=== PATIENT | female | born 1990 | race Caucasian/White ===

== ENCOUNTER 2024-07-11 19:17 | Emergency (ER) | payer OTHER, SELFPAY ==
[2024-07-11 19:20] VITALS: BP 121/82
[2024-07-11 19:45] LABS: % Basophils 0.6 % (0-2); % Eosinophils 2.7 % (0-6); % Immature Granulocytes 0.2 % (0-0.5); % Lymphocytes 30.8 % (20.5-51.1); % Monocytes 12.4 % (1.7-9.3); % Neutrophils 53.3 % (42.2-75.2); Absolute Eosinophils 0.1 10^3/uL (0-0.7); Absolute Lymphocytes 1.6 10^3/uL (1.2-3.4); Absolute Monocytes 0.6 10^3/uL (0.1-0.6); Absolute Neutrophils 2.8 10^3/uL (1.4-6.5); Hematocrit 34.1 % (37.0-47.0); Hemoglobin 12.3 g/dL (12.0-16.0); Mean Corp Hgb Conc. 36.1 g/dL (33.0-37.0); Mean Corpuscular Hgb 30.4 pg (27.0-31.0); Mean Corpuscular Volume 84.4 fL (81.0-99.0); Mean Platelet Volume 11.2 fL (7.4-10.4); Nucleated Red Blood Cells % 0 %; Platelet Count 204 10^3/uL (130-400); Red Blood Cell Count 4.04 10^6/uL (4.20-5.40); Red Cell Dist. Width 11.6 % (11.5-14.5); White Blood Cell Count 5.2 10^3/uL (4.8-10.8)
[2024-07-11 20:04] LABS: ALT (SGPT) 12 U/L (0-35); AST (SGOT) 26 U/L (14-36); Albumin 4.6 g/dl (3.5-5.0); Alkaline Phosphatase 54 U/L (38-126); Blood Urea Nitrogen 6 mg/dl (7-17); Calcium 9.7 mg/dl (8.4-10.2); Carbon Dioxide 21 mmol/L (22-30); Chloride 102 mmol/L (98-107); Glucose 101 mg/dl (70-99); Sodium 141 mmol/L (135-145); Total Bilirubin 0.8 mg/dl (0.2-1.3); Total Protein 7.5 g/dl (6.3-8.2); eGFR > 60.00
[2024-07-11 21:51] VITALS: BP 127/89
[2024-07-11 23:00] VITALS: BP 112/75
[2024-07-11 23:08] LABS: COVID-19 Antigen Negative (Negative)
[2024-07-11 23:26] VITALS: BMI 21.5
[2024-07-11] MEDS: NSS 1000 IV (23:43)
--- NOTE | 2024-07-12 00:14 | ED.GENMED ---
History of Present Illness
General
Chief Complaint: Headache
Source: patient
Time Seen by Provider: 07/11/24 21:29
History of Present Illness
History of Present Illness:
33-year-old female who presents with headache that has been ongoing for some time. The patient states she has a history of migraines but doing better with ibuprofen but over the last weeks or longer has had headaches. Her son was recently sick and
over the last 3 to 4 days she has had some diarrhea, nausea, body aches, congestion and over the last few days her headache has persisted. She presents as she was thinking maybe she had West Nile virus or some other brain process. The patient
states initially that she was hoping to get a CAT scan to rule out a brain tumor. Patient denies any motor weakness or numbness or tingling. No vision changes. No neck pain. No neck stiffness. No fevers
Past History
Past History
ED Past Medical History: Other (Migraines)
Phy Exam
Physical Exam
Physical Exam:
CONSTITUTIONAL Patient alert and oriented to person, place and time. Well-appearing. Vital signs reviewed.
HEAD atraumatic, normocephalic.
EYES eyelids normal to inspection, Pupils equally round and reactive to light, Extraocular muscles intact, Conjunctiva normal, Sclera normal.
NECK normal range of motion, Trachea midline, no jugular venous distention.
RESPIRATORY CHEST No respiratory distress noted, Chest expansion equal, Bilateral breath sounds clear.
CARDIOVASCULAR regular rate and rhythm, Heart sounds normal.
ABDOMEN abdomen nontender, Bowel sounds normal. No distention.
BACK normal inspection, no obvious deformities
UPPER EXTREMITY range of motion normal, Motor strength normal, no cyanosis, no edema.
LOWER EXTREMITY range of motion normal, Motor strength normal, no cyanosis, no edema.
NEURO Speech normal, No focal motor deficits, Rose coma scale 15, Memory normal, Cranial Nerves intact to screening exam. No pronator drift. Normal [id number]. Normal [id number]
SKIN skin warm, dry, and normal in color.
PSYCHIATRIC patient oriented to person place and time, Normal affect.
Course
Orders/Labs/Results
Orders:
Orders
07/11/24 19:35
Complete Blood Count/With Diff Urgent
Comprehensive Metabolic Panel Urgent
[facility] Progressive Urgent
07/11/24 22:49
COVID-19 Antigen Urgent
Source: Nasal Swab
07/11/24 23:31
0.9% Sodium Chloride 1000 ml [Nss] 1,000 ml IV BOLUS
Abnormal Lab Results
07/11/24
19:35
RBC 4.04 L 10^6/uL
(4.20-5.40)
Hct 34.1 L %
(37.0-47.0)
MPV 11.2 H fL
(7.4-10.4)
Monocytes % 12.4 H %
(1.7-9.3)
Carbon Dioxide 21 L mmol/L
(22-30)
BUN 6 L mg/dl
(7-17)
Glucose 101 H mg/dl
(70-99)
07/11/24 19:35
07/11/24 19:35
Vital Signs
Initial and Last Documented VS:
Initial Vital Signs
Temp Pulse Resp BP Pulse Ox
98.3 F 113 20 121/82 97
07/11/24 19:20 07/11/24 19:20 07/11/24 19:20 07/11/24 19:20 07/11/24 19:20
Last Documented Vital Signs
Temp Pulse Resp BP Pulse Ox
98.3 F 71 18 109/78 98
07/11/24 19:20 07/12/24 00:28 07/12/24 00:28 07/12/24 00:28 07/12/24 00:28
MDM/Problems Addressed
MDM/Problems Addressed:
Headache, viral syndrome
*Pulse Oximetry
Patient hypoxic: no
*Critical Care Note
Total Time (30-74mins, 75-104mins- exclusive of procedures): Not Applicable
Data Reviewed
Source: patient
Further Testing Considered But Not Given:
Consider CT but no focal motor findings and headaches have been ongoing for some time
Patient Management
Escalation/DeEscalation of care consider admission/obs:
Long discussion about imaging. The patient admits that she has had headaches for some time and was frustrated by her neurologist and PCP. I see no evidence for need for head CT at this time. Her neurologic assessment is normal. I did recommend
at some point having outpatient MRI. She does agree. I suspect she had a viral illness recently given her symptoms and her son being sick. I suspect this is triggered her symptoms. I recommended increase fluids and outpatient follow-up
ED Attending Note
-
Portions of this chart may have been created with voice recognition software.� Occasional wrong word or��sound alike� substitutions may have occurred due to the inherent limitations of voice recognition software.
Discharge Plan
Departure
Patient Disposition: Home (Routine Discharge)
Date of Disposition: 07/12/24
Time of Disposition: 00:14
Patient with high blood pressure during this ER visit?: No
Discharge Problem:
Headache, Acute viral syndrome
Instructions: Headache, Adult (DC)
Referrals:
Preethi Fink CRNP [Family Provider] -
Activity Restrictions/Additional Instructions:
In light of your recurrent headaches, it is recommended that at some point you have an MRI of your brain. Please see your doctor to arrange outpatient MRI. Return immediately for worsening symptoms, intractable vomiting, weakness McConn, vision
changes or any other concerns. Please drink plenty of fluids.
Interventions
Interventions:
*Risk Screen - Suicide Last Done: 07/11/24 19:20
*General Assessment Last Done: 07/11/24 19:20
*Neglect/Abuse Screening Last Done: 07/11/24 19:20
ED- Fall Risk Assessment Last Done: 07/11/24 21:51
*ED COVID-19 Vaccine History Last Done: 07/11/24 23:26
*Nursing Disposition Last Done: 07/12/24 00:28
ED- Neurological Assessment Last Done: 07/11/24 23:26
Discharge Date and Time
Discharge Date/Time: 07/12/24 00:29
Print Language: AMERICAN
[2024-07-12 00:27] VITALS: BP 109/78
[2024-07-12 00:28] VITALS: BP 109/78
[2024-07-15 13:45] LABS: Lyme Antibody Screen, EIA Negative (Negative)
== END 2024-07-12 00:29 | disposition home or self-care (01) ==
LOC: EMR 19:17
PROVIDERS: Emergency Medicine; EMERGENCY PHYSICIAN Emergency Medicine; FAMILY PHYSICIAN Nurse Practitioner Adult Health
DX: B34.9 Viral infection, unspecified (principal); R51.9 Headache, unspecified
CPT/HCPCS: 99284; 96360; 80053; 85025; 86618; 87811